=== PATIENT | female | born 1955 | race Caucasian/White ===

== ENCOUNTER → 2019-02-18 | Outpatient (CLI) | payer BC | LOC: FIMAGING 13:48 | PROVIDERS: ATTEND Orthopaedic Surgery | DX: M17.11 Unilateral primary osteoarthritis, right knee (principal) ==

== ENCOUNTER 2019-03-11 06:26 | Observation (INO) | payer BC | END 2019-03-12 11:41 | disposition home or self-care (01) | LOC: F3N 06:26 ==